=== PATIENT | male | born 1965 | race Caucasian/White ===

== ENCOUNTER 2017-06-30 09:22 | Emergency (ER) | payer OTHER ==
[2017-06-30] MEDS ORDERED: DIAZEPAM 5 MG/ML SYRG IV ONE (09:29)
[2017-06-30] MEDS ORDERED: KETOROLAC TROMETHAMINE 30 MG/ML VIAL IV ONE (09:29)
[2017-06-30] MEDS ORDERED: METHYLPREDNISOLONE SOD SUCC/PF 40 MG/ML VIAL IV ONE (09:29)
[2017-06-30] MEDS ORDERED: ORPHENADRINE CITRATE 30 MG/ML VIAL ONE (09:46)
[2017-06-30] MEDS ORDERED: KETOROLAC TROMETHAMINE 30 MG/ML VIAL ONE (09:46)
[2017-06-30] MEDS ORDERED: ORPHENADRINE CITRATE 30 MG/ML VIAL IV ONE (09:46)
[2017-06-30] MEDS ORDERED: METHYLPREDNISOLONE SOD SUCC/PF 40 MG/ML VIAL ONE (09:46)
[2017-06-30 09:47] LABS: Hematocrit 44.8 % (42.0-52.0); Hemoglobin 15.5 gm/dL (13.5-18.0); Mean Cell Volume 94.3 fl (78-100); Mean Corpuscular Hemoglobin 32.6 pg (27-31); Mean Corpuscular Hgb Conc 34.6 g/dl (32-36); Mean Platelet Volume 8.3 fl (6.0-9.5); Neutrophil # 9.4 K/mm3 (1.3-6.0); Platelet Count 310 K/mm3 (150-450); Red Blood Count 4.75 M/mm3 (4.7-6.0); Red Cell Distribution Width 12.6 % (11.5-14.0); White Blood Count 12.7 K/mm3 (4.0-10.5)
[2017-06-30] MEDS ORDERED: LORazepam 1 MG TABLET PO ONE (09:51)
[2017-06-30] MEDS ORDERED: LORazepam 1 MG TABLET ONE (09:55)
[2017-06-30 10:06] LABS: ALT 51 U/L (19-67); AST 30 U/L (0-48); Albumin * 3.7 gm/dl (3.4-5.0); Alkaline Phosphatase * 47 U/L (50-170); Anion Gap 11.5 mmol/L (6.8-13.8); BUN/Creatinine Ratio 15.1 (9.0-21.6); Bilirubin, Total 0.4 mg/dL (0.0-1.1); Blood Urea Nitrogen 19 mg/dL (6-23); Ca. Corrected For Albumin 8.7 mg/dL (8.4-10.2); Calcium * 8.8 mg/dL (7.9-10.9); Carbon Dioxide 31.8 mmol/L (24-32.6); Chloride 102 mmol/L (97-106); Glucose * 198 mg/dL (70-110); Potassium 3.3 mmol/L (3.4-4.6); Sodium 142 mmol/L (132-142); Total Protein 7.2 gm/dL (6.2-8.2); Troponin I Less than 0.017 ng/ml (0.00-0.10)
--- NOTE | 2017-06-30 10:50 | ERNOTE ---
Upper Extremity HPI - General Extremities Pain Location: shoulder: left Time Seen by Provider: 06/30/17 09:28 Source: patient Exam Limitations: no limitations - Immun/Allergies/Home Medications Immunizations: IMMUNIZATION HX Immunizations Up to Date Yes History of Influenza Vaccine No Hx Pneumococcal Vaccination No Allergies/Adverse Reactions: Allergies Allergy/AdvReac Type Severity Reaction Status Date / Time No Known Drug Allergies Allergy Verified 06/30/17 09:36 Home Medications: HOME MEDICATIONS Simvastatin [Zocor] 20 mg PO HS 01/28/15 [Last Taken 01/27/15] Famotidine 20 mg PO DAILY 11/20/15 [Last Taken Unknown] Fluticasone Propionate [Flonase] 1 spray NS DAILY 11/20/15 [Last Taken Unknown] Loratadine [Claritin] 10 mg PO DAILY 11/20/15 [Last Taken Unknown] Escitalopram Oxalate [Lexapro] 10 mg PO DAILY 01/04/16 [Last Taken Unknown] Buspar 09/27/16 [Last Taken Unknown] Diazepam [Valium] 5 mg PO BID PRN #20 tab 06/30/17 [Last Taken Unknown] Omeprazole [Prilosec] 20 mg PO DAILY #30 cap 06/30/17 [Last Taken Unknown] oxyCODONE HCL/ACETAMINOPHEN [Percocet 5-325 mg Tablet] 1 tab PO PRN PRN [Last Taken Unknown] predniSONE [Deltasone] 20 mg PO BID #10 tablet 06/30/17 [Last Taken Unknown] - History of Present Illness Narrative: Patient presents with a variety complaints, he is currently having a panic attack after having been taken off of his antianxiety medicine by the pain clinic, to have an recurrence of his left-sided neck pain with pain and numbness going into the left side of the neck shoulder and arm. Patient rates the pain as at least moderate in severity. Patient has known herniated disc and spinal stenosis of the neck and has had frequent injections and pain management into the area. Occurred: other - chronic Severity: moderate, severe Method of Injury: Reports: no apparent injury Loss of Consciousness: Reports: no loss of consciousness Associated Symptoms: Reports: numbness distally - chronic from the spinal stenosis and herniated disks in the neck Prior Treament: Reports: recently seen, treated by physician, similar symptoms before Review of Systems - Review of Systems Constitutional: Present: See HPI EYE: Present: no symptoms reported ENT: Present: no symptoms reported Respiratory: Present: no symptoms reported Cardiology: Present: no symptoms reported Gastrointestinal/Abdominal: Present: no symptoms reported Genitourinary: Present: no symptoms reported Musculoskeletal: Present: See HPI - chronic neck pain. Chronic cervical radiculopathy Skin: Present: no symptoms reported Neurological: Present: numbness - chronic numbness with nerve pain into the left shoulder Endocrine: Present: no symptoms reported Hematologic/Lymphatic: Present: no symptoms reported Psych: Present: no symptoms reported - Patient's Past Medical History Patient History - Medical: Chronic Pain, Other - spinal stenosis, cervical radiculopathy, herniated cervical disks Patient History - Cardiac/Respiratory: Hyperlipidemia Patient History - Cancer: No Hx of Cancer Patient History - Surgical Procedures: Appendectomy, T & A, Other Patient History - Other: None - Social History Living Situations: home Abuse History: No History of abuse Psych History: No pertinent hx Smoking Status: Current every day smoker Have you smoked in the past 12 months: Yes Do you dip or chew tobacco: No Alcohol Use: none Drug Use: none - Immunizations Immunizations Up to Date: Yes Hx Pneumococcal Vaccination: No History of Influenza Vaccine: No Physical Exam - Physical Exam General Appearance: Present: wd/wn, alert, moderate distress Head Exam: Present: normal inspection Eye Exam: Normal inspection: bilateral, PERRL: bilateral Ears, Nose, Throat: Present: normal ENT inspection, H, normal pharynx Neck: Present: limited range of motion - secondary to pain and spasm Respiratory: Present: no respiratory distress, normal breath sounds, no accessory muscle use, chest nontender, lungs clear Cardiovascular/Chest: Present: regular rate, rhythm, no murmur, normal peripheral pulses Gastrointestinal/Abdominal: Present: normal bowel sounds, nontender, nondistended, soft, no organomegaly Rectal Exam: Present: deferred Back Exam: Present: normal inspection, normal range of motion Extremity Exam: Present: normal inspection, non-tender, no edema, normal range of motion Neurological Exam: Present: alert, oriented, other - anxious to the point of panic, peripheral neuralgia present on neck motion Skin Exam: Present: normal color, warm/dry Lymphatic Exam: Present: no adenopathy ED Progress - Results and Orders Patient's Lab Results:: I have reviewed the patient's lab results. - Vital Signs Patient's Vital Signs:: I have reviewed the patient's vital signs. Vital Signs: Vital Signs 06/30/17 09:30 Pulse Rate 104 H Respiratory 21 H Rate Blood Pressure 134/85 O2 Sat by Pulse 96 Oximetry - EKG EKG: NSR - X-Ray X-Ray #1 X-Ray: chest Interpretation: Reviewed by me X-Ray #2 X-Ray: c-spine Interpretation: Reviewed by me - CT/Ultrasound CT/Ultrasound Narrative: CT of the head was reviewed by me - Progress/Reassessment Chief Complaint: Upper Extremity Injury/Problem Progress:: Improved Plan - Plan Plan: Patient was given a GI cocktail and his chest pain resolved. Patient has known cervical disc disease spinal stenosis and frequent cervical radiculopathy is under the care of pain management. They however told him to stop his Ativan and his panic attacks have become considerably worse and more frequent. While in edition we want to minimize use of benzodiazepines with pain management this patient is not doing well off of his Ativan. I'm going to restart his Ativan at this juncture and have him follow-up with his family physician to try to coordinate pain management and anxiety. She was given Ativan here in the emergency department and he felt considerably better. He was also given Toradol and Norflex which showed the neck pain and spasm, he was also given IV Solu-Medrol to help with any edema. Departure Clinical Impression: Panic attack, Cervical radiculopathy GERD (gastroesophageal reflux disease) Qualifiers: Esophagitis presence: with esophagitis Qualified Code(s): K21.0 - Gastro- esophageal reflux disease with esophagitis - Departure Disposition: Home self-care Condition: Good Instructions: Panic Attacks, [id number], Cervical Radiculopathy, [id number] , Indigestion, [id number]-lb-[id number] Additional Instructions: Call Elly Hendrickson for an appointment Referrals: Tatianna Bautista FNP [Primary Care Provider] - Prescriptions: Diazepam [Valium] 5 mg PO BID PRN #20 tab PRN Reason: Anxiety Omeprazole [Prilosec] 20 mg PO DAILY #30 cap predniSONE [Deltasone] 20 mg PO BID #10 tablet
[2017-06-30] MEDS ORDERED: SUCRALFATE 1 G/10 ML UDC PO ONE (10:56)
[2017-06-30] MEDS ORDERED: LIDOCAINE HCL 20 ML UDC PO ONE (10:56)
[2017-06-30] MEDS ORDERED: MAG HYDROX/ALUMINUM HYD/SIMETH 30 ML UDC PO ONE (10:56)
[2017-06-30 11:28] VITALS: BP 131/73
[2017-06-30 13:31] LABS: Magnesium 2.3 mg/dL (1.2-2.8)
== END 2017-06-30 11:51 | disposition home or self-care (01) ==
LOC: ER 09:22
DX: M54.12 Radiculopathy, cervical region (principal); F41.0 Panic disorder [episodic paroxysmal anxiety]; K21.0 Gastro-esophageal reflux disease with esophagitis; F17.200 Nicotine dependence, unspecified, uncomplicated; G89.29 Other chronic pain

== ENCOUNTER 2017-07-02 11:32 | Emergency (ER) | payer OTHER ==
--- NOTE | 2017-07-02 12:28 | ERNOTE ---
Lower Extremity HPI - Narrative Date of Service: 07/02/17 - General Lower Extremities Pain: foot: left - lateral aspect Time Seen by Provider: 07/02/17 12:26 Source: patient Exam Limitations: no limitations - Immun/Allergies/Home Medications Immunizations: IMMUNIZATION HX Immunizations Up to Date Yes History of Influenza Vaccine No Hx Pneumococcal Vaccination No Allergies/Adverse Reactions: Allergies Allergy/AdvReac Type Severity Reaction Status Date / Time No Known Drug Allergies Allergy Verified 07/02/17 11:51 Home Medications: HOME MEDICATIONS Simvastatin [Zocor] 20 mg PO HS 01/28/15 [Last Taken 01/27/15] Famotidine 20 mg PO DAILY 11/20/15 [Last Taken Unknown] Fluticasone Propionate [Flonase] 1 spray NS DAILY 11/20/15 [Last Taken Unknown] Loratadine [Claritin] 10 mg PO DAILY 11/20/15 [Last Taken Unknown] Escitalopram Oxalate [Lexapro] 10 mg PO DAILY 01/04/16 [Last Taken Unknown] Buspar 09/27/16 [Last Taken Unknown] Diazepam [Valium] 5 mg PO BID PRN #20 tab 06/30/17 [Last Taken Unknown] Omeprazole [Prilosec] 20 mg PO DAILY #30 cap 06/30/17 [Last Taken Unknown] oxyCODONE HCL/ACETAMINOPHEN [Percocet 5-325 mg Tablet] 1 tab PO PRN PRN [Last Taken Unknown] predniSONE [Deltasone] 20 mg PO BID #10 tablet 06/30/17 [Last Taken Unknown] - Pain Score Pain Score #1 Pain Score: 9 - History of Present Illness Narrative: 52yo, M, presents to ER for evaluation of L. foot injury. He notes he had a cramp in his leg, which then caused him to "roll" his L. foot inward. Pain immediately after injury to lateral aspect L. foot. Denies any ankle pain. Pain increased with weight bearing and ambulation. Date (Duration): 07/02/17 Time (Timing): 09:30 Occurred: this morning Location of Incident: home Method of Injury: Reports: other - rolled Loss of Consciousness: Reports: no loss of consciousness Modifying Factors - (Improves): Reports: pain medication - chronic pain meds ( morphine and Oxycodone), rest Modifying Factors - (Worsens): Reports: movement - weight bearing Review of Systems - Review of Systems Constitutional: Present: no symptoms reported Musculoskeletal: Present: joint pain - L. lateral foot, joint swelling - L. lataeral foot. Absent: other - ankle pain, ankle swelling Skin: Present: other - bruising L. foot Neurological: Absent: weakness, numbness - Patient's Past Medical History Patient History - Medical: Chronic Pain, Other Patient History - Cardiac/Respiratory: Hyperlipidemia Patient History - Cancer: No Hx of Cancer Patient History - Surgical Procedures: Appendectomy, T & A, Other Patient History - Other: None - Social History Living Situations: home Abuse History: No History of abuse Psych History: No pertinent hx Smoking Status: Current every day smoker Have you smoked in the past 12 months: Yes Alcohol Use: none Drug Use: none - Immunizations Immunizations Up to Date: Yes Hx Pneumococcal Vaccination: No History of Influenza Vaccine: No Physical Exam - Physical Exam General Appearance: Present: wd/wn, alert, no apparent distress Respiratory: Present: normal breath sounds, no accessory muscle use. Absent: rales, rhonchi, wheezing Cardiovascular/Chest: Present: regular rate, rhythm Extremity Exam: Present: joint swelling - mild L. lateral foot, other - tenderness along L. 5th metatarsal, no ankle pain/tenderness, ankle ROM wnl. Absent: joint redness Neurological Exam: Present: alert, oriented Skin Exam: Present: normal color, warm/dry ED Progress - Date and Time Seen: Date and Time: 07/02/17 12:[address] Godwin re: fx 5th metatarsal. Requests pt being placed in CAM boot , crutches prn, weight bearing as tolerated. F/u in office on Friday. Ortho office closed for lunch at this time, so unable to schedule appt. Spoke with pt re: f/u and dc plan. He will call ortho after 1:00 today to schedule appt. - Vital Signs Patient's Vital Signs:: I have reviewed the patient's vital signs. Vital Signs: Vital Signs 07/02/17 11:49 Temperature 36.9 C Pulse Rate 131 H Respiratory 14 Rate Blood Pressure 140/87 O2 Sat by Pulse 99 Oximetry - X-Ray X-Ray #1 X-Ray: foot Interpretation: Reviewed by me X-ray Comments: [facility] PATIENT RADIOLOGY STUDY REPORT Patient Patient Name:DEENA SCHAEFER Date: 1965 Sex: M Order Number: [id number] Unique Exam ID: [id number] Exam Requested: [id number] - Foot 3 Views LT * Date Scheduled: 07-02-2017 11:53 AM Study Priority: Requesting Service: Requesting Physician: Rachelle Maria Reason for Exam: rolled foot heard a pop. Radiological Report : [place] [address] NAME: DEENA SCHAEFER : 1965 MR #: [id number] CC: LOC: ER ADM DATE: X-RAY REPORT [id number] RAD/Foot 3 Views LT * Exam Date: 07/02/2017 11:53 Ordering Physician: Rachelle Maria HISTORY/INDICATION: rolled foot heard a pop. TECHNIQUE: 3 views of the left foot. COMPARISONS: None available. Foot 3 Views LT * There is a transversely oriented fracture lucency without significant displacement or angulation at the proximal fifth metatarsal bone, without involvement of the articular surface. Joint spaces are in gross normal alignment without subluxation or dislocation. Lisfranc joint grossly intact. Soft tissues are grossly normal. IMPRESSION: Nondisplaced fracture of the proximal fifth metatarsal bone without involvement of the articular surface. Electronically signed by Trisha Sanabria M.D.. Trisha Sanabria MD Dict: 07/02/17 1208 Typed: 07/02/17 1208/ 07/02/17 1209 07/02/17 1212 , Approved by: TRISHA SANABRIA Approval Date: 07-02-2017 Approval Time: 12:08 PM THIS REPORT WAS RECEIVED FROM THE [facility] - Progress/Reassessment Chief Complaint: Foot Injury/Pain Departure Clinical Impression: Fracture of fifth metatarsal bone of left foot Qualifiers: Encounter type: initial encounter Fracture type: closed Fracture alignment: nondisplaced Qualified Code(s): S92.355A - Nondisplaced fracture of fifth metatarsal bone, left foot, initial encounter for closed fracture - Departure Disposition: Home self-care Condition: Good Instructions: Metatarsal Fracture Additional Instructions: Rest, ice and elevate left foot Wear CAM boot at all times Weight bearing as tolerated, use crutches as needed if having increased pain with weight bearing Call Orthopedics today after 1:00 to schedule a follow up appt. Dr. Godwin requests to see you in office on Friday07/07/17 Continue your previously prescribed pain medications as ordered Referrals: Sg Godwin MD [Staff Physician] -
[2017-07-02 13:06] VITALS: BP 138/84
== END 2017-07-02 13:07 | disposition home or self-care (01) ==
LOC: ER 11:32
DX: S92.355A Nondisplaced fracture of fifth metatarsal bone, left foot, initial encounter for closed fracture (principal); X58.XXXA Exposure to other specified factors, initial encounter; Y93.9 Activity, unspecified; Y92.9 Unspecified place or not applicable; G89.29 Other chronic pain; E78.5 Hyperlipidemia, unspecified; F17.200 Nicotine dependence, unspecified, uncomplicated

== ENCOUNTER 2017-09-15 13:45 | Day surgery (SDC) | payer MEDICAID, OTHER ==
[~2017-09-15 13:45] MED LIST: RINGER'S SOLUTION,LACTATED 1,000 ML IV PRN
[2017-09-15 17:45] VITALS: BP 127/87
--- NOTE | 2017-09-15 19:53 | OR ---
Operative Report - Dictated Report Narrative: OPERATIVE REPORT DATE OF OPERATION: 09/15/2017 PREOPERATIVE DIAGNOSIS: No prior dedicated: Studies POSTOPERATIVE DIAGNOSIS: Diverticulosis OPERATION: Colonoscopy SURGEON: Shira Valero MD ANESTHESIA: DELFINO Britton CRNA INDICATIONS FOR PROCEDURE: The patient is a 52-year-old male referred by A Michele JEAN. The patient has had no previous dedicated colon studies. His family history is unknown as he is adopted. He has a very redundant sigmoid colon on CT scan FINDINGS: Capacious redundant colon with diverticulosis otherwise normal exam to the cecum NARRATIVE OF PROCEDURE: The patient was identified in the holding area, and prior to the administration of anesthetic, a multidisciplinary timeout was observed. With the patient in the left lateral position and after the administration of intravenous sedation, the perineum was inspected. There was no evidence of pilonidal disease or skin breakdown. The external appearance of the anus was normal. Sphincter tone was good. The flexible fiberoptic colonoscope was inserted into the rectum which was insufflated with air. The rectal mucosa and submucosal vascular pattern appeared normal, the prep was seen to be complete. The scope was advanced through the sigmoid colon, which contained numerous large non-impacted noninflamed diverticular openings. The scope was advanced up the descending colon, and around the splenic flexure where the triangular haustral architecture of the transverse colon was seen. The scope was advanced across the transverse colon, around the hepatic flexure to the cecum, where the confluence of tenia and the ileocecal valve were identified. The mucosa at this level appeared normal. The scope was then slowly withdrawn in a circular fashion so that all aspects of colonic mucosa were inspected. The colon was capacious and character and redundant in course requiring standard reduction maneuvers and gentle external manual compression on the abdomen to reach the cecum. The haustral architecture appeared well preserved throughout with no evidence of external compression. The mucosa and submucosal vascular pattern appeared normal, specifically there was no gross evidence to suggest colitis or inflammatory bowel disease and no AV malformations were seen. The diverticulosis was moderate in degree and confined primarily to the sigmoid colon. No polyps were encountered. The scope was gradually withdrawn to the level of the rectum. As much insufflated air as possible was removed. The scope was withdrawn from the patient and the procedure terminated. The patient tolerated the anesthetic and procedure well without complication and was transferred back to the ambulatory surgery area awake and in stable condition. The patient remained stable throughout a period of postoperative observation. He denied abdominal discomfort, was able to tolerate by mouth intake, and was up without assistance. I shared the operative findings with the patient and he was given copies of the photographs which appear in the medical record. He was discharged home with instructions not to engage in hazardous activity today, but may resume normal activity tomorrow, and advance diet as tolerated. He is to continue those medications as listed in the history and physical exam. \ RECOMMENDATION: Colon surveillance in 10 years depending upon findings and symptoms Reviewed and electronically signed
== END 2017-09-15 13:46 | disposition home or self-care (01) ==
LOC: AMB 13:45
PROVIDERS: ATTEND Surgery
PROC: 0DJD8ZZ Inspection of Lower Intestinal Tract, Via Natural or Artificial Opening Endoscopic (ICD-10-PCS; principal; 2017-09-15 13:45)
DX: Z12.11 Encounter for screening for malignant neoplasm of colon (principal); K57.30 Diverticulosis of large intestine without perforation or abscess without bleeding; E78.5 Hyperlipidemia, unspecified; B18.2 Chronic viral hepatitis C; G47.30 Sleep apnea, unspecified; E66.9 Obesity, unspecified; Z68.32 Body mass index [BMI] 32.0-32.9, adult; Z87.891 Personal history of nicotine dependence